=== PATIENT | male | born 1935 | race Caucasian/White ===

== ENCOUNTER 2020-08-07 14:46 | Emergency (ER) | payer OTHER, MEDICARE ==
[2020-08-07 15:00] VITALS: BP 152/65; PULSE 79; TEMP 98.8; BMI 34.9
[2020-08-07 16:21] LABS: BASO % 1.6 % (0-2.0); HEMOGLOBIN 14.5 GM/dl (11.7-16.9); LYMPH % 18.2 % (8-40); MCH 28.2 pg (25.7-33.7); MCHC 32.3 g/dl (32.0-35.9); MEAN CELL VOLUME 87.4 fl (80-96); MONO % 9.4 % (3.8-10.2); NEUT % 66.8 % (42.8-82.8); PLATELET COUNT 167 K/MM3 (134-434); RBC 5.15 M/mm3 (4.00-5.60); RDW 13.5 % (11.9-15.9); WHITE BLOOD COUNT 7.9 K/mm3 (4.0-10.8)
[2020-08-07 16:25] LABS: ACTIVATED PTT 26.4 SECONDS (25.2-36.5)
[2020-08-07 16:27] LABS: BILIRUBIN,TOTAL 0.6 mg/dl (0.2-1); CREATININE 1.2 mg/dl (0.55-1.3); TOT PROT 7.2 g/dl (6.4-8.2); URIC ACID 7.8 mg/dl (2.6-7.2)
[2020-08-07 16:29] LABS: INR 1.13 (0.82-1.09); PROTHROMBIN TIME (PATIENT) 12.5 SEC (10.2-13.0)
== END 2020-08-07 18:08 | disposition home or self-care (01) ==
LOC: FER 14:46
DX: M10.9 Gout, unspecified (principal)
CPT/HCPCS: 36415; 73140-TC-LT-FY; 80053; 84550; 85025; 85610; 85730; 87040; 99284-25